=== PATIENT | female | born 2005 | race Caucasian/White ===

== ENCOUNTER 2023-01-17 14:45 | Outpatient (RCR) | payer OTHER | END 2023-01-19 | disposition home or self-care (01) | LOC: MKS.ESL.PT | DX: M75.21 Bicipital tendinitis, right shoulder (principal) ==

== ENCOUNTER 2023-01-24 10:13 | Outpatient (RCR) | payer OTHER | END 2023-02-18 | LOC: MKS.ESL.PT | DX: M75.21 Bicipital tendinitis, right shoulder (principal) ==